=== PATIENT | female | born 1995 | race Native Hawaiian/Other Pacific Islander ===

== ENCOUNTER 2018-02-04 12:31 | Emergency (ER) | payer MEDICAID ==
[2018-02-04 12:38] VITALS: TEMP 98.8
[2018-02-04] MEDS ORDERED: MethylPREDNISolone 40 mg Vial ONE (14:21)
[2018-02-04] MEDS ORDERED: Sodium Chloride 0.9% 1,000 ML ONE (14:21)
[2018-02-04] MEDS: Sodium Chloride 0.9% 1,000 ML IV ONE (14:22)
[2018-02-04] MEDS: MethylPREDNISolone 40 mg Vial IVP STA (14:23)
--- NOTE | 2018-02-04 15:32 | C.PDOC ---
History Of Present Illness 22 year old female presents to the ED for evaluation facial itchiness and swelling around hey eyes which began after taking Janny Sieper approx 1 hour [employer]. Patient has known allergy to Aspirin, but did not realize Janny Sieper contained Aspirin in it. Patient denies shortness of breath, sensation of throat closing up, lip or tongue swelling, wheezing. Time Seen by Provider: 02/04/18 12:42 Chief Complaint (Nursing): Allergic Reaction History Per: Patient History/Exam Limitations: no limitations Onset/Duration Of Symptoms: Hrs (1) Current Symptoms Are (Timing): Still Present Possible Cause: Food Associated Symptoms: denies: Trouble Swallowing Home/EMS Treatment: None Severity: Moderate Additional History Per: Patient Past Medical History Reviewed: Historical Data, Nursing Documentation, Vital Signs Vital Signs: Last Vital Signs Temp 98.8 F 02/04/18 12:36 Pulse 77 02/04/18 16:37 Resp 18 02/04/18 16:37 BP 101/69 02/04/18 16:37 Pulse Ox 100 02/04/18 16:37 - Medical History PMH: No Chronic Diseases Surgical History: No Surg Hx Family History: States: No Known Family Hx - Social History Hx Alcohol Use: No Hx Substance Use: No - Immunization History Hx Tetanus Toxoid Vaccination: No Hx Influenza Vaccination: No Hx Pneumococcal Vaccination: No Review Of Systems Constitutional: Negative for: Fever, Chills ENT: Positive for: Other (periorbital swelling, itching ). Negative for: Nose Congestion Respiratory: Negative for: Cough, Shortness of Breath, Wheezing Gastrointestinal: Negative for: Nausea, Vomiting Skin: Positive for: Rash (urticaria) Neurological: Negative for: Headache, Dizziness Physical Exam - Physical Exam Appears: Well, Non-toxic, In Acute Distress (in mild discomfort ), Other ( speaking in full sentences ) Skin: Warm, Dry, Other (scattered urticaria ) Head: Swelling (periorbital, bilateral ) Eye(s): bilateral: PERRL, EOMI, Other (clear discharge B/L ) Oral Mucosa: Moist, No Drooling Tongue: Normal Appearing, No Swelling Lips: Normal Appearing, No Swelling Throat: No Erythema, No Exudate, No Drooling, Other (uvula midline and normal in appearance ) Neck: Supple Cardiovascular: Rhythm Regular Respiratory: Normal Breath Sounds, No Rales, No Rhonchi, No Stridor, No Wheezing Neurological/Psych: Oriented x3 ED Course And Treatment O2 Sat by Pulse Oximetry: 98 (on RA) Pulse Ox Interpretation: Normal Progress Note: Patient given PO Prednisone, PO Benadryl, PO Pepcid. On reassessment, B/L periorbital swelling slightly worse. IV line inserted, patient given IV solumedrol and IV NS bolus. Observed patient in ED for approx 3 hours. Reevaluation Time: 16:20 Reassessment Condition: Improved (On reassessment, patient states she feels better. Periobital swelling has decreased, patient is well appearing and comfortable being discharged home. She has no SOB, wheezing, lip/tongue swelling, and vitals are normal. Rxs for Prednisone and Claritin given. Patient instructed to follow up with PMD/clinic in 1-2 days, and understands she should return to ED if her symptoms worsen.) Disposition Counseled Patient/Family Regarding: Diagnosis, Need For Followup, Rx Given - Disposition Referrals: [facility] [Outside] Disposition: HOME/ ROUTINE Disposition Time: 16:20 Condition: STABLE Additional Instructions: FOLLOW UP WITH YOUR DOCTOR/CLINIC IN 1-2 DAYS RETURN TO ER IF SYMPTOMS WORSEN USE MEDICATIONS DIRECTED Prescriptions: Loratadine [Claritin] 10 mg PO DAILY PRN #30 tab PRN Reason: Itching / Pruritus predniSONE [predniSONE Tab] 40 mg PO DAILY #6 tab Instructions: Drug Allergy Forms: [facility] (Gambian), Work Excuse Print Language: [place] CITIZEN - Clinical Impression Clinical Impression: Allergic reaction caused by a drug - Scribe Statement The provider has reviewed the documentation as recorded by the Scribe (Megan Quigley) Provider Attestation: All medical record entries made by the Scribe were at my direction and personally dictated by me. I have reviewed the chart and agree that the record accurately reflects my personal performance of the history, physical exam, medical decision making, and the department course for this patient. I have also personally directed, reviewed, and agree with the discharge instructions and disposition.
[2018-02-04 16:39] VITALS: BP 101/69; PULSE 77; RESP 18
[2018-02-06 17:59] VITALS: O2SAT 98
== END 2018-02-04 16:39 | disposition home or self-care (01) ==
LOC: C.ER 12:31
DX: T78.40XA Allergy, unspecified, initial encounter (principal); T50.995A Adverse effect of other drugs, medicaments and biological substances, initial encounter; Y92.89 Other specified places as the place of occurrence of the external cause
CPT/HCPCS: 96361; 96374; 99284; J2920; J7030